=== PATIENT | male | born 1960 | race Hispanic/Latino ===

== ENCOUNTER → 2024-08-30 | Outpatient (CLI) | payer OTHER ==
--- NOTE | 2024-08-30 15:14 | HMCIMG ---
CT CORONARY CALCIFICATION SCORING: Anatomic images were reviewed. The calcium score is being generated and reported separately. This report is for the visualized anatomy only. Visualized portions of the lungs are clear. Hilar and mediastinal structures appear normal. Osseous structures are unremarkable. Impression: 1. Negative noncardiac anatomic findings. 2. The calcium score is 64.9 consistent with a mild degree of calcified plaque. This is 40th percentile for a patient this age. CT was performed with one or more following dose reduction techniques: automated exposure control, adjustment of the mA and kv according to patient's size, or use of a iterative reconstruction technique.
== END | disposition home or self-care (01) ==
LOC: RAH 12:45
PROVIDERS: ATTEND Internal Medicine Cardiovascular Disease
DX: Z13.6 Encounter for screening for cardiovascular disorders (principal); I25.10 Atherosclerotic heart disease of native coronary artery without angina pectoris
CPT/HCPCS: 75571